=== PATIENT | male | born 1995 | race Hispanic/Latino ===

== ENCOUNTER 2022-06-30 19:14 | Emergency (ER) | payer SELFPAY ==
--- NOTE | 2022-06-30 19:59 | RAD REPORT ---
EXAM DESCRIPTION: RAD - Humerus Left - 06/30/2022 7:49 pm CLINICAL HISTORY: Left arm pain FINDINGS: No fracture is seen
--- NOTE | 2022-06-30 20:02 | RAD REPORT ---
EXAM DESCRIPTION: RAD -Hand Left 3 View - 06/30/2022 7:49 pm CLINICAL HISTORY: Left hand pain FINDINGS: Lateral dislocation first proximal phalanx. No fracture noted
[2022-06-30] MEDS ORDERED: BUPIVACAINE 0.5% PF 10 ML VIAL ONE ×2 (20:24→20:54)
[2022-06-30] MEDS ORDERED: LIDOCAINE 1% MPF 5 ML VIAL ONE ×2 (20:24→20:54)
--- NOTE | 2022-06-30 21:44 | RAD REPORT ---
EXAM DESCRIPTION: RAD - Hand Left 2 View - 06/30/2022 9:31 pm CLINICAL HISTORY: Finger dislocation FINDINGS: Previously described dislocation first proximal phalanx has been reduced
--- NOTE | 2022-06-30 22:06 | ER ---
Nurse's Notes [facility] Name: Shabbir Torres Age: 27 yrs Sex: Male : 1995 Arrival Date: 06/30/2022 Time: 19:21 Bed 4 Private MD: Diagnosis: Pain in left upper arm;Dislocation of metacarpophalangeal joint of left thumb, initial encounter Presentation: 06/30 19:36 Chief complaint: Patient states: C/o left arm pain, states slid 4 meters down a ladder ll3 at work. Coronavirus screen: Vaccine status: Patient reports being unvaccinated. At this time, the client does not indicate any symptoms associated with coronavirus-19. Ebola Screen: No symptoms or risks identified at this time. Initial Sepsis Screen: Does the patient meet any 2 criteria? No. Patient's initial sepsis screen is negative. Does the patient have a suspected source of infection? No. Patient's initial sepsis screen is negative. Risk Assessment: Do you want to hurt yourself or someone else? Patient reports no desire to harm self or others. Onset of symptoms was June 30, 2022. 19:36 Method Of Arrival: Ambulatory ll3 19:36 Acuity: CASEY 3 ll3 Historical: - Allergies: 19:38 No Known Allergies; ll3 - Home Meds: 19:38 None [Active]; ll3 - PMHx: 19:38 None; ll3 - PSHx: 19:38 None; ll3 - Immunization history:: Client reports having NOT received the Covid vaccine. - Social history:: Smoking status: Patient denies any tobacco usage or history of. Screenin:45 [facility] ED Fall Risk Assessment (Adult) History of falling in the last 3 months, pf1 including since admission Yes- single mechanical fall (1 pt) Confusion or Disorientation No (0 pts) Intoxicated or Sedated No (0 pts) Impaired Gait No (0 pts) Mobility Assist Device Used No (0 pt) Altered Elimination No (0 pt) Score/Fall Risk Level 0 - 2 = Low Risk Oriented to surroundings, Maintained a safe environment, Educated pt \T\ family on fall prevention, incl call for assistance when getting out of bed, Assessed \T\ reinforced patient's understanding of fall precautions, Provided non-skid footwear, Hourly rounding (assess needs \T\ fall precautionary measures) done, Used ambulatory aids as needed (educated on \T\ assisted with), Used gait belt as appropriate. 19:45 Abuse screen: Denies threats or abuse. Nutritional screening: No deficits noted. pf1 Tuberculosis screening: No symptoms or risk factors identified. Assessment: 06/29 19:45 General: Appears in no apparent distress. uncomfortable, well groomed, well developed, pf1 Behavior is calm, cooperative, appropriate for age, quiet. 19:45 General: Patient stated he slid down a ladder while at work and denies any head pf1 injury.. Pain: Complains of pain in left thumb and left upper arm Pain currently is 7 out of 10 on a pain scale. Neuro: No deficits noted. Level of Consciousness is awake, alert, obeys commands, Oriented to person, place, time, situation. Cardiovascular: No deficits noted. Capillary refill < 3 seconds Patient's skin is warm and dry. Respiratory: No deficits noted. Airway is patent Trachea midline Respiratory effort is even, unlabored, Respiratory pattern is regular, symmetrical, Breath sounds are clear bilaterally. GI: No deficits noted. Abdomen is flat, non-distended. : No deficits noted. No signs and/or symptoms were reported regarding the genitourinary system. EENT: No deficits noted. No signs and/or symptoms were reported regarding the EENT system. Derm: No deficits noted. No signs and/or symptoms reported regarding the dermatologic system. Musculoskeletal: Reports pain in left thumb and left upper arm. 06/30 20:45 Reassessment: Patient appears in no apparent distress at this time. Patient and/or pf1 family updated on plan of care and expected duration. Pain level reassessed. Patient states feeling better. Patient states symptoms have improved. patient denies any upper arm when at rest.. 21:45 Reassessment: Patient appears in no apparent distress at this time. No changes from pf1 previously documented assessment. Patient and/or family updated on plan of care and expected duration. Pain level reassessed. Patient is alert, oriented x 3, equal unlabored respirations, skin warm/dry/pink. Patient states feeling better. Patient states symptoms have improved. Vital Signs: 19:36 BP 122 / 80; Pulse 83; Resp 16; Temp 98.6(TE); Pulse Ox 99% on R/A; Weight 65.77 kg ll3 (R); Height 5 ft. 2 in. (157.48 cm); Pain 10/10; 20:30 BP 132 / 63; Pulse 89; Resp 16; Pulse Ox 97% on R/A; as6 22:35 BP 113 / 70; Pulse 76; Resp 16; Pulse Ox 97% on R/A; as6 19:36 Body Mass Index 26.52 (65.77 kg, 157.48 cm) ll3 ED Course: 19:21 Patient arrived in ED. am2 19:24 [facility]C [facility] kb 19:24 Michel Harrell MD is Attending Physician. kb 19:38 Triage completed. ll3 19:38 Arm band placed on right wrist. Patient placed in an exam room, on a stretcher, on ll3 pulse oximetry. 20:17 Adenike diaz RN is Primary Nurse. pf1 23:08 Patient has correct armband on for positive identification. Bed in low position. Call ll3 light in reach. Side rails up X 1. 23:08 No provider procedures requiring assistance completed. Patient did not have IV access ll3 during this emergency room visit. Administered Medications: 20:30 Drug: Lidocaine (1 %) 1 vials {Note: administered by provider .} Volume: 5 ml; Route: as6 Infiltration; 21:30 Follow up: Response: No adverse reaction; Marked relief of symptoms; Pain is decreased pf1 20:30 Drug: Marcaine (bupivacaine) (0.5 %) 1 vials {Note: administered by provider .} Volume: as6 10 ml; Route: Infiltration; 21:30 Follow up: Response: No adverse reaction; Marked relief of symptoms; Pain is decreased pf1 Medication: 23:07 VIS not applicable for this client. ll3 Outcome: 22:06 Discharge ordered by . kb 23:08 Discharged to home ambulatory. ll3 23:08 Condition: stable 23:08 Discharge instructions given to patient, Instructed on discharge instructions, follow up and referral plans. Demonstrated understanding of instructions, follow-up care. 23:10 Patient left the ED. as6 Signatures: Holly Hale FNP-C FNP-Shannan Cedeño am2 Kip Melendez RN RN as6 Shaina Blevins RN RN ll3 diaz, Adenike, RN RN pf1
--- NOTE | 2022-06-30 22:06 | EDPHYS ---
Physician Documentation [facility] Name: Shabbir Torres Age: 27 yrs Sex: Male : 1995 Arrival Date: 06/30/2022 Time: 19:21 Bed 4 Private MD: ED Physician Michel Harrell HPI: 06/30 23:02 This 27 yrs old Male presents to ER via Ambulatory with complaints of Arm kb Injury, Fall Injury - from ladder. 23:02 The patient or guardian complains of pain. The complaints affect the left hand and left kb upper arm. Context: The problem was sustained at work, resulted from a fall. Onset: The symptoms/episode began/occurred today, at 17:00. Treatment prior to arrival includes: no previous treatment. Modifying factors: The symptoms are alleviated by nothing. the symptoms are aggravated by movement. Associated signs and symptoms: Pertinent positives: decreased range of motion, deformity, pain. Severity of symptoms: At their worst the symptoms were moderate, in the emergency department the symptoms are unchanged. The patient has not experienced similar symptoms in the past. The patient has not recently seen a physician. Historical: - Allergies: 19:38 No Known Allergies; ll3 - Home Meds: 19:38 None [Active]; ll3 - PMHx: 19:38 None; ll3 - PSHx: 19:38 None; ll3 - Immunization history:: Client reports having NOT received the Covid vaccine. - Social history:: Smoking status: Patient denies any tobacco usage or history of. ROS: 22:58 Constitutional: Negative for fever, chills, and weight loss. kb 22:58 MS/extremity: Positive for injury or acute deformity, pain, tenderness, of the left hand and left upper arm. 22:58 All other systems are negative. Exam: 22:58 Constitutional: This is a well developed, well nourished patient who is awake, alert, kb and in no acute distress. Head/Face: Normocephalic, atraumatic. ENT: Moist Mucous membranes Cardiovascular: Regular rate and rhythm with a normal S1 and S2. No gallops, murmurs, or rubs. No pulse deficits. Respiratory: Respirations even and unlabored. No increased work of breathing. Talking in full sentences Abdomen/GI: Soft, non-tender. No distention Skin: Warm, dry with normal turgor. Normal color. Neuro: Awake and alert, GCS 15, oriented to person, place, time, and situation. Moves all extremities. Normal gait. Psych: Awake, alert, with orientation to person, place and time. Behavior, mood, and affect are within normal limits. 22:58 Musculoskeletal/extremity: Extremities: grossly normal except: noted in the left upper arm: pain, tenderness, noted in the left thumb: decreased ROM, deformity, pain, tenderness, ROM: intact in all extremities, Circulation is intact in all extremities. Sensation intact. Vital Signs: 19:36 BP 122 / 80; Pulse 83; Resp 16; Temp 98.6(TE); Pulse Ox 99% on R/A; Weight 65.77 kg ll3 (R); Height 5 ft. 2 in. (157.48 cm); Pain 10/10; 20:30 BP 132 / 63; Pulse 89; Resp 16; Pulse Ox 97% on R/A; as6 22:35 BP 113 / 70; Pulse 76; Resp 16; Pulse Ox 97% on R/A; as6 19:36 Body Mass Index 26.52 (65.77 kg, 157.48 cm) ll3 Procedures: 20:37 Nerve block: (digital) of left thumb Medication: Lidocaine 1% without epinephrine kb Marcaine 0.5%, Amount: 6 mls were injected, Effect: the patient has resolution of the pain, Set up for procedure. Performed by Holly JADE-C Patient tolerated well. 21:54 Reduction: of the left thumb, using traction, manipulation, Immobilized with finger kb splint, Patient tolerated well. Post reduction film - reveals normal alignment. MDM: 19:36 Patient medically screened. kb 23:03 Differential diagnosis: dislocation, closed fracture, contusion. Data reviewed: vital kb signs, nurses notes. Independent interpretation of the following test(s) in the Emergency Department X-Ray: My interpretation is Initial x-ray revealed dislocation. Postreduction x-ray revealed normal alignment. Both images read by me. Counseling: I had a detailed discussion with the patient and/or guardian regarding: the historical points, exam findings, and any diagnostic results supporting the discharge/admit diagnosis, radiology results, the need for outpatient follow up, a family practitioner, to return to the emergency department if symptoms worsen or persist or if there are any questions or concerns that arise at home. ED course: Patient is a 27-year-old male who states he slid down some stairs at work at 5:00 today. Complains of pain to left upper arm and hand only. On exam tenderness to humerus area on the left side and deformity to left thumb with tenderness. Respirations even and unlabored, lungs clear bilaterally, no abdominal tenderness. Patient denies hitting his head or LOC. No neurodeficits, awake alert and oriented x4. X-ray reveals dislocation of left thumb. Digital block performed using lidocaine and Marcaine. Dislocation reduced and normal alignment revealed on repeat x-ray. Patient educated follow-up with orthopedics.. 06/30 19:36 Order name: Humerus Left XRAY 06/30 19:36 Order name: Hand Left 3 View XRAY 06/30 20:00 Order name: RAD; Complete Time: 20:00 EDMS 06/30 20:02 Order name: RAD; Complete Time: 20:02 EDMS 06/30 20:57 Order name: Hand Left 2 View XRAY 06/30 21:44 Order name: RAD; Complete Time: 21:54 EDMS 06/30 21:55 Order name: Thumb Spica Splint; Complete Time: 23:03 kb Administered Medications: 20:30 Drug: Lidocaine (1 %) 1 vials {Note: administered by provider .} Volume: 5 ml; Route: as6 Infiltration; 21:30 Follow up: Response: No adverse reaction; Marked relief of symptoms; Pain is decreased pf1 20:30 Drug: Marcaine (bupivacaine) (0.5 %) 1 vials {Note: administered by provider .} Volume: as6 10 ml; Route: Infiltration; 21:30 Follow up: Response: No adverse reaction; Marked relief of symptoms; Pain is decreased pf1 Disposition: 07/01 05:20 Co-signature as Attending Physician, Michel Harrell MD I reviewed the patient's care rt provided by the Advanced Practice Provider and agree with the diagnosis and treatment plan. Chart complete. Disposition Summary: 06/30/22 22:06 Discharge Ordered Location: Home kb Condition: Stable kb Diagnosis - Pain in left upper arm kb - Dislocation of metacarpophalangeal joint of left thumb, initial encounter kb Followup: kb - With: Emergency Department - When: As needed - Reason: Worsening of condition Followup: kb - With: Private Physician - When: 2 - 3 days - Reason: Recheck today's complaints, Continuance of care, Re-evaluation by your physician Discharge Instructions: - Discharge Summary Sheet kb - Finger or Thumb Dislocation kb - Musculoskeletal Pain kb Forms: - Medication Reconciliation Form kb - Thank You Letter kb - Antibiotic Education kb - Prescription Opioid Use kb Signatures: Dispatcher [employer] EDMS Holly Hale, [employer]-Kip Petit RN RN as6 Shaina Blevins RN RN ll3 Michel Harrell MD MD rt Adenike diaz RN pf1
[2022-06-30 23:20] VITALS: TEMP 98.8; O2SAT 100
[2022-06-30 23:22] VITALS: BP 113/70
== END 2022-06-30 23:10 | disposition home or self-care (01) ==
LOC: ER 19:14
PROC: 0RSVXZZ Reposition Left Metacarpophalangeal Joint, External Approach (ICD-10-PCS; principal; 2022-06-30)
DX: S63.115A Dislocation of metacarpophalangeal joint of left thumb, initial encounter (principal); M79.622 Pain in left upper arm
CPT/HCPCS: 64450; 99283; J2001